=== PATIENT | female | born 1955 | race Caucasian/White ===

== ENCOUNTER → 2016-11-08 | Outpatient (CLI) | payer OTHER ==
--- NOTE | 2016-11-08 20:25 | DX ---
DEXA Bone Mineral Densitometry Clinical Indications: Postmenopausal, parent with hip fracture, wrist and pelvic fracture Comparison: None Technique: Bone Mineral Densitometry (BMD) by Dual Energy X-Ray Absorptiometry (DEXA) was performed utilizing the [employer] scanner. The lumbar spine was evaluated in the AP projection. The bilat eral hips and forearm were evaluated in the AP projection. Vertebral fracture assessment was also pe rformed. AP Lumbar Spine: The L1, L2, L3 and L4 vertebral bodies were evaluated. BMD: 1.106 gm/cm2 T-score: -0.7 SD Z-score: 0.9 SD AP Left Hip: Total BMD: 0.796 gm/cm2 T-score: -1.7 SD Z-score: -0.5 SD AP Right Hip: Neck BMD: 0.689 gm/cm2 T-score: -2.5 SD Z-score: -1.0 SD AP Left Forearm, 10/05: BMD: 0.761 gm/cm2 T-score: -1.3 SD Z-score: -0.1 SD Vertebral Fracture Assessment: No significant fracture deformity. No prevertebral aortic calcificati on, significant marginal bone spurring, facet arthrosis, or intrinsic vertebral body sclerosis that would effect the accuracy of the lumbar spine BMD measurement. Conclusion: Considering the lowest measured site, the patient is osteoporotic and at increased risk for additional fractures. The ten year FRAX risk for any major osteoporotic fracture is 36.4% and for a hip fracture is 4.7%. Any bone loss in this patient is probably related to aging or estrogen deficiency. Consider excluding secondary metabolic causes of bone loss (reported to be present in as many as 30% of patients with normal Z scores). Basic laboratory evaluation might include blood chemistries (calci um, phosphorus, alkaline phosphatase, liver function tests, creatinine, total protein), complete bloo d count, serum 25-OH- vitamin D3 level, 24-hour urine calcium, serum TSH and serum PTH. Targeted l aboratory testing based on individual patient circumstances might include serum electrophoresis (SPEP or UPEP), anti-tissue transglutaminase antibody levels (celiac disease) , serum bone specific alkal ine phosphatase, bone turnover markers (urine, serum) or fibroblast growth factor 23 (FGF 23)(evaluat e for unexplained osteomalacia). If secondary causes are excluded, then consider initiating treatment with a bisphosphonate (such as F osamax, Actonel or Boniva). If the patient is unable to use an oral bisphosphonate, another agent suc h as IV bisphosphonates (Boniva or Reclast), teriparatide (Forteo), a selective estrogen receptor mo dulator (Evista) or Denosumab ( anti RANKL monoclonal antibody) might be considered. If antiresorptive therapy is initiated and if clinically indicated, consider obtaining a baseline and 3 month followup bone resorption marker (NTX, CTX, TRAP5b or Pyridinoline, deoxypyridinoline) to mon itor the therapeutic effect. Supplementing an insufficient diet to achieve total intakes of 1500 mg calcium and 800 International Units of vitamin D daily should be considered. Osteoporosis prevention and treatment begins by modify ing risk factors. The patient should be encouraged to participate in a regular exercise program that includes weightbearing and muscle strengthening regimens, as is clinically appropriate. Recommend follow-up DEXA in one year to assess the efficacy of pharmacologic intervention and/or lisa ection of appropriate secondary cause.
== END ==
LOC: FIMAGING 14:45
DX: M81.0 Age-related osteoporosis without current pathological fracture (principal)